=== PATIENT | male | born 1985 | race African-American/Black ===

== ENCOUNTER 2020-11-17 17:33 | Emergency (ER) | payer OTHER ==
[2020-11-17 20:30] VITALS: BP 152/92
== END 2020-11-17 22:16 | disposition home or self-care (01) ==
LOC: ER 17:35
DX: U07.1 COVID-19 (principal); J30.9 Allergic rhinitis, unspecified
CPT/HCPCS: 36415; 71045; 87426

== ENCOUNTER 2021-10-20 19:31 | Emergency (ER) | payer OTHER ==
[~2021-10-20] VITALS: Ht 180.3 cm; Wt 77.1 kg
[2021-10-20 19:45] VITALS: BP 132/78
[2021-10-20] MEDS ORDERED: ACETAMINOPHEN 500 MG TAB PO ONE (20:30)
== END 2021-10-21 02:15 | disposition left against medical advice (07) ==
LOC: ER 19:34
DX: M54.59 Other low back pain (principal); R51.9 Headache, unspecified; Z53.21 Procedure and treatment not carried out due to patient leaving prior to being seen by health care provider
CPT/HCPCS: 72131